=== PATIENT | female | born 1940 ===

== ENCOUNTER → 2016-09-29 | Day surgery (SDC) | payer OTHER ==
[~2016-09-29] MED LIST: B-121000 MC1 PO; BENTYL20 MG PO; CALCIUM PO; CHEWABLE ASPIRI81 MG PO; LEVSIN0.125 M1 DOB; VITAMIN D22000 UNIT PO
--- NOTE | ~2016-09-29 | OR ---
Unit #: [id number] #: [id number] Patient: ALISIA CROWE [id number] [address] [id number] [id number] O MR#: [id number] NAME: ALISIA CROWE ROOM: Date of Procedure: 09/29/2016 Admission Date: 09/29/2016 Surgeon: Pedro Prince M.D. : 1940 Attending Physician: Pedro Prince M.D. OPERATIVE REPORT PREOPERATIVE DIAGNOSES Dyspepsia, gastroesophageal reflux, and dysphagia. PROCEDURES PERFORMED 1. Upper gastrointestinal endoscopy and biopsy. 2. Upper gastrointestinal endoscopy and dilation with a Weber dilator. POSTOPERATIVE DIAGNOSES 1. The patient had diffuse atrophic gastritis involving the almost entire stomach. There were little islands of normal mucosa in between. Biopsies obtained both for histology and CLOtest. 2. Distal esophageal ring. The latter was dilated using a 60-[place] Weber dilator. 3. Small hiatus hernia. 4. Rest of the examination up to third part of duodenum was normal. Biopsies obtained from the antrum for CLOtest. RECOMMENDATIONS We will follow up results of biopsies and CLOtest taken today. The patient being started on omeprazole 40 mg p.o. daily. She will be followed up in the office in 10 to 12 weeks' time. SEDATION USED MAC. DESCRIPTION OF PROCEDURE Following detailed explanation of the potential risks and complications of an upper endoscopy, namely perforation, bleeding, and complications related to sedation, the patient was brought to GI lab and laid in the left lateral decubitus position. Lubricated tip of the Olympus video upper endoscope was passed through the bite block into the proximal esophagus under direct vision. The entire esophageal mucosa was examined. The patient was noted to have distal esophageal mucosal ring. In addition, a small hiatus hernia was noted. The scope was then advanced in the gastric cavity and the latter was insufflated. Mucosa of the fundus, body, and antrum was examined. The patient was noted to have diffuse gastritis with multiple islands of normal mucosa and diffuse atrophic gastritis. Pylorus was intubated with visualization of the normal duodenal bulb and second and third part of the duodenum. Upon withdrawal and retroflexion, incisura, cardia, and greater curve examined and biopsy obtained from the antrum for CLOtest. In addition, biopsies also obtained from the gastric cavity for histology. The scope was then withdrawn in Unit #: [id number] #: [id number] Patient: ALISIA CROWE the distal esophagus. The entire esophageal mucosa was examined all the way up to pharynx, no additional findings noted. The patient tolerated the procedure without any postprocedure complications. Dictated by... Catracho Leonard/layne TD: 09/29/2016 16:25 JOB #: [id number] CC: Jonathan Gray M.D. OPERATIVE REPORT Page 1 of 1 X Pedro Prince MD X PROCEDURE OPERATIVE NOTE
== END | disposition home or self-care (01) ==
LOC: COPS 09:06
DX: K29.50 Unspecified chronic gastritis without bleeding (principal); K31.89 Other diseases of stomach and duodenum; K22.2 Esophageal obstruction; K44.9 Diaphragmatic hernia without obstruction or gangrene; I10 Essential (primary) hypertension; M19.90 Unspecified osteoarthritis, unspecified site; K21.9 Gastro-esophageal reflux disease without esophagitis; Z88.0 Allergy status to penicillin; Z79.82 Long term (current) use of aspirin; Z79.899 Other long term (current) drug therapy; Z90.49 Acquired absence of other specified parts of digestive tract
CPT/HCPCS: 87077; 88305; 88312